=== PATIENT | male | born 1930 | race Hispanic/Latino ===

== ENCOUNTER 2018-05-17 11:12 | Inpatient (IN) | payer MEDICARE ==
--- NOTE | 2018-05-17 12:18 | ED PDOC ---
Upper Extremity Pain/Injury History Per: Family History/Exam Limitations: no limitations Onset/Duration Of Symptoms: Days Severity: None Pain Scale Rating Of: 0 Additional Complaint(s): 88 year old male with PMHx of A.Fib, HTN, hypercholestrolemia, DM, BPH and arthritis presents to the ED complaining of right finger injury. Patient is seen with her at bedside. Patient and his reports that the nail on the right middle finger spontaneously fell off. Reports that he has been noticing bleeding from the area but denies of any purulent drainage. Reports that he has been putting Mercurochrome on the finger and dressing it with a bandage. Reports that he recently noticed little swelling on the finger and decided to come to the ED. Denies of having any pain to the area. Patient denies of any recent F/N/V/C/SOB/CP/headache/diarrhea/constipation. Patient denies of any prior treatment. Denies of any other complains at this time. PMHx: A.Fib, HTN, hypercholestrolemia, DM and arthritis, BPH PSHx: Denies Allergies: N.K.D.A FHx: non-contributory SHx: Denies smoking, EtOH or illicit drug usage PMH: Dr. Hansen <Tristan Mcwilliams - Last Filed: 05/17/18 14:46> <Gerardo Reyes III - Last Filed: 05/17/18 15:59> Time Seen by Provider: 05/17/18 11:39 Chief Complaint (Nursing): Finger,Hand,&Wrist Past Medical History - Medical History PMH: Arthritis, Atrial Fibrillation, Benign Prostatic Hyperplasia, HTN, Hypercholesterolemia - Family History Family History: States: Unknown Family Hx <Tristan Mcwilliams - Last Filed: 05/17/18 14:46> <Gerardo Reyes III - Last Filed: 05/17/18 15:59> - Home Medications Home Medications: Ambulatory Orders Medication Instructions Recorded Aspirin [Ecotrin] 81 mg PO DAILY 09/21/16 Cholecalciferol (Vitamin D3) 2,000 unit PO DAILY 09/21/16 [Vitamin D3] Finasteride [Proscar] 5 mg PO DAILY 09/21/16 GlipiZIDE [Glucotrol] 2.5 mg PO BID 09/21/16 Lisinopril/Hydrochlorothiazide 1 tab PO BID 09/21/16 [Lisinopril-Hctz 20-12.5 mg Tab] MetFORMIN [glucOPHAGE] 1,000 mg PO BID 09/21/16 Metoprolol Tartrate [Lopressor] 25 mg PO Q12 09/21/16 Niacin [Niaspan] 750 mg PO HS 09/21/16 Simvastatin [Zocor] 10 mg PO HS 09/21/16 Tamsulosin [Flomax] 0.4 mg PO HS 09/21/16 Warfarin Sodium [Jantoven] 5 mg PO DAILY 09/21/16 Warfarin Sodium [Jantoven] 6 mg PO MWF 09/21/16 amLODIPine [Norvasc] 5 mg PO DAILY 09/21/16 ALPRAZolam [Xanax] 0.25 mg PO DAILY PRN 05/17/18 Multivitamin/Iron/Folic Acid 1 tab PO DAILY 05/17/18 [Centrum Complete Multivit Tab] Sertraline [Zoloft] 25 mg PO HS 05/17/18 traZODone [Desyrel] 50 mg PO HS 05/17/18 - Allergies Allergies/Adverse Reactions: Allergies Allergy/AdvReac Type Severity Reaction Status Date / Time No Known Allergies Allergy Verified 09/21/16 18:16 Review of Systems Constitutional: Negative for: Fever, Chills, Sweats, Weakness, Malaise Eyes: Negative for: Pain ENT: Negative for: Ear Pain Cardiovascular: Negative for: Chest Pain, Palpitations Respiratory: Negative for: Cough, Shortness of Breath, Wheezing Gastrointestinal: Negative for: Nausea, Vomiting, Abdominal Pain, Diarrhea, Constipation Musculoskeletal: Negative for: Hand Pain Skin: Negative for: Rash Neurological: Negative for: Weakness, Numbness Psych: Negative for: Anxiety <Tristan Mcwilliams - Last Filed: 05/17/18 14:46> Physical Exam - Physical Exam Appears: Positive for: Well, No Acute Distress Head Exam: Positive for: ATRAUMATIC Skin: Positive for: Normal Color. Negative for: Warm, Rash Eye Exam: Positive for: Normal appearance ENT: Positive for: Normal ENT Inspection Neck: Positive for: Normal Cardiovascular/Chest: Positive for: Regular Rate, Rhythm Respiratory: Positive for: Normal Breath Sounds Gastrointestinal/Abdominal: Positive for: Normal Exam, Bowel Sounds Extremity: Positive for: Normal ROM, Capillary Refill, Swelling Lymphatic: Positive for: Deferred <Mcwilliams,Tristan - Last Filed: 05/17/18 14:46> - Physical Exam Extremity: Positive for: Other (R middle digit loss fingernail, macerated base w erythema and mild edema to distal digit) <Gerardo Reyes III - Last Filed: 05/17/18 15:59> - Laboratory Results Result Diagrams: 05/17/18 14:00 05/17/18 14:00 <Gerardo Reyes III - Last Filed: 05/17/18 15:59> Medical Decision Making Medical Decision Making: attending note patient seen/examined w resident, agree w findings 88yo DM hx osteomyelitis foot now w spontaneous loss of R middle fingernail, denies trauma, nail bed w maceration and evidence infection, XRay reveals possibly osteomyelitis. Dr Hansen PMD contacted, requests Dr Ann Marie DO, who was also consulted and recommended vanco/unasyn and may need hand surgery eval. <Gerardo Reyes III - Last Filed: 05/17/18 15:59> Disposition - Patient ED Disposition Is Patient to be Admitted: Yes <Tristan Mcwilliams - Last Filed: 05/17/18 14:46> Counseled Patient/Family Regarding: Studies Performed, Diagnosis, Need For Followup - Disposition Disposition Time: 13:30 - Pt Status Changed To: Hospital Disposition Of: Inpatient - Admit Certification Admit to Inpatient:: After my assessment, the patient will require hospitalization for at least two midnights. This is because of the severity of symptoms shown, intensity of services needed, and/or the medical risk in this patient being treated as an outpatient. <Gerardo Reyes III - Last Filed: 05/17/18 15:59> - Clinical Impression Clinical Impression: Osteomyelitis of finger - Disposition Condition: FAIR
--- NOTE | 2018-05-17 14:03 | RAD ---
PROCEDURE: Right Hand Radiographs. HISTORY: 3rd digit injury COMPARISON: None. FINDINGS: BONES: Comminuted fracture of the tuft of the 3rd distal phalanx. There is absent cortex on the distal aspect of the 3rd distal phalanx which is most likely due to displaced fracture fragment. Cannot exclude superimposed osteomyelitis but there is absent periosteal reaction to support this diagnosis. Correlate clinically. No other fracture identified. 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 SOFT TISSUES: Soft tissue swelling about the distal aspect of the 3rd digit OTHER FINDINGS: None. IMPRESSION: Comminuted displaced fracture distal aspect 3rd distal phalanx. Osteoarthritis.
[2018-05-17 14:55] LABS: BASO % 0.1 % (0.0-2.0); EOS # 0.1 K/uL (0.0-0.7); EOS % 0.8 % (0.0-4.0); HEMOGLOBIN 12.8 g/dL (12.0-18.0); LYMPH # 1.3 K/uL (1.0-4.3); LYMPH % 12.2 % (20.0-40.0); MEAN CORPUSCULAR HEMOGLOBIN 30.9 pg (27.0-31.0); MEAN CORPUSCULAR HGB CONC 34.3 g/dL (33.0-37.0); MEAN PLATELET VOLUME 7.9 fl (7.2-11.7); MONO # 0.9 K/uL (0.0-0.8); MONO % 8.3 % (0.0-10.0); NEUT # 8.4 K/uL (1.8-7.0); NEUT % 78.6 % (50.0-75.0); NRBC % 0.1 % (0.0-0.0); RBC 4.16 Mil/uL (4.40-5.90); RED CELL DISTRIBUTION WIDTH 14.1 % (11.5-14.5); WHITE BLOOD COUNT 10.7 K/uL (4.8-10.8)
[2018-05-17 15:01] LABS: ALB/GLOB RATIO 1.5 (1.0-2.1); ALBUMIN 4.2 g/dL (3.5-5.0); CALCIUM 9.3 mg/dL (8.4-10.2)
[2018-05-17 15:27] LABS: INR 2.3 (0.9-1.2); PARTIAL THROMBOPLASTIN TIME 37.7 Seconds (25.6-37.1); PROTHROMBIN TIME 25.4 Seconds (9.8-13.1)
[2018-05-17] MEDS ORDERED: Vancomycin 1 g Inj ONE (15:33)
--- NOTE | 2018-05-17 16:57 | CP.PCM.PN ---
Subjective - Date & Time of Evaluation Date of Evaluation: 05/17/18 Time of Evaluation: 16:50 - Subjective Subjective: I D NOTE DISCUSSED CASE c ER MD INITIALLY GIVEN VANCOMYCIN 1 GM AND UNASYN 1.5GM IVPB Q6H PRIOR TO RESULTS OF RENAL FUNCTION CREATININE IS 1.5 HAVE STARTED CLINDAMYCIN 600MG IVPB Q8H UNASYN 1.5 GM IVPB Q12H(ADJUSTED RENAL DOSE AWAIT CULTURES Objective - Medications Medications: Current Medications Clindamycin Phosphate 600 mg/ (Sodium Chloride) 54 mls @ 54 mls/hr IVPB Q8 [facility] PRN Reason: Protocol Ampicillin Sodium/Sulbactam (Sodium 1.5 gm/ Sodium Chloride) 100 mls @ 100 mls/ hr IVPB Q12H [facility] PRN Reason: Protocol - Labs Labs: 05/17/18 14:00 05/17/18 14:00 PT 25.4 Seconds (9.8-13.1) H 05/17/18 14:00 INR 2.3 (0.9-1.2) H 05/17/18 14:00 APTT 37.7 Seconds (25.6-37.1) H 05/17/18 14:00
[2018-05-17] MEDS ORDERED: Clindamycin 600mg/50ml NS 600 MG/50 ML BAG IVPB SCH (17:00)
[2018-05-17] MEDS: Clindamycin 600mg/50ml NS 600 MG/50 ML BAG IVPB SCH (19:52)
[2018-05-17] MEDS: Pravastatin Sodium 20 MG TAB PO SCH (21:06)
[2018-05-18] MEDS: Clindamycin 600mg/50ml NS 600 MG/50 ML BAG IVPB SCH ×3 (00:25→16:02)
[2018-05-18 06:42] LABS: PROTHROMBIN TIME 22.3 Seconds (9.8-13.1)
--- NOTE | 2018-05-18 06:50 | CP.PCM.HP ---
<Celia Pineda - Last Filed: 05/18/18 12:15> History of Present Illness - History of Present Illness History of Present Illness: HPI: 88 YO male with PMHx of A.Fib, HTN, hypercholestrolemia, DM, BPH and arthritis came to [facility] for pain and discharge from R middle finger. Pt seen and examined this AM. Pt is hard of hearing. Pt states that he came to the ED for bleeding and pain on R middle finger. Pt states that this started about two weeks ago when his fingernail spontaneously fell off. He has had sero- sangunious fluid coming out of the site but no pus, or any other fluids. Pt does not recall any trauma. Pt has been dressing the site with band-aids and noticed that it has been looking worse in the past few days. Denies chest pain, dyspnea, n/v/d/c, fever and chills. PMD: Dr. Hansen PMHx: A.Fib, HTN, hypercholestrolemia, DM and arthritis, BPH SurgHx: Denies SHx: Denies smoking, ETOH or illicit drug usage Allergies: NKDA Present on Admission - Present on Admission Any Indicators Present on Admission: No Review of Systems - Constitutional Constitutional: absent: Chills, Fever - Cardiovascular Cardiovascular: absent: Chest Pain, Dyspnea, Palpitations - Respiratory Respiratory: absent: Cough, Dyspnea - Gastrointestinal Gastrointestinal: absent: Abdominal Pain - Genitourinary Genitourinary: absent: Dysuria - Musculoskeletal Additional comments: mild pain in R middle finger - Neurological Neurological: absent: Numbness Past Patient History - Past Medical History & Family History Past Medical History?: Yes - Past Social History Smoking Status: Never Smoked - CARDIAC Hx Cardiac Disorders: Yes Hx Atrial Fibrillation: Yes Hx Hypercholesterolemia: Yes Hx Hypertension: Yes - PULMONARY Hx Respiratory Disorders: No - NEUROLOGICAL Hx Neurological Disorder: No - HEENT Hx HEENT Problems: Yes Hx Cataracts: Yes (surgery) - RENAL Hx Chronic Kidney Disease: No - ENDOCRINE/METABOLIC Hx Endocrine Disorders: Yes Hx Diabetes Mellitus Type 2: Yes - HEMATOLOGICAL/ONCOLOGICAL Hx Blood Disorders: No - INTEGUMENTARY Hx Dermatological Problems: No - MUSCULOSKELETAL/RHEUMATOLOGICAL Hx Musculoskeletal Disorders: Yes Hx Arthritis: Yes Hx Falls: No Hx Osteomyelitis: Yes (fiffth digit of thhe right toe, surgery) - GASTROINTESTINAL Hx Gastrointestinal Disorders: No - GENITOURINARY/GYNECOLOGICAL Hx Genitourinary Disorders: Yes Hx Prostate Problems: Yes (BPH) - PSYCHIATRIC Hx Psychophysiologic Disorder: No Hx Substance Use: No - SURGICAL HISTORY Hx Surgeries: Yes Hx Cataract Extraction: Yes (BILATERAL) Hx Musculoskeletal Surgery: Yes (RIGHT DISTAL TOE SURGERY) - ANESTHESIA Hx Anesthesia: Yes Hx Anesthesia Reactions: No Hx Malignant Hyperthermia: No Has any member of the family had a problem w/ anesthesia?: No Meds Allergies/Adverse Reactions: Allergies Allergy/AdvReac Type Severity Reaction Status Date / Time No Known Allergies Allergy Verified 09/21/16 18:16 Physical Exam - Constitutional Appears: No Acute Distress, Other (hearing aid in R ear ) - Head Exam Head Exam: ATRAUMATIC - Eye Exam Eye Exam: EOMI - ENT Exam ENT Exam: Mucous Membranes Moist - Respiratory Exam Respiratory Exam: Clear to Auscultation Bilateral. absent: Wheezes - Cardiovascular Exam Cardiovascular Exam: Irregular Rhythm, +S1, +S2 - GI/Abdominal Exam GI & Abdominal Exam: Normal Bowel Sounds, Soft. absent: Tenderness - Extremities Exam Extremities exam: Positive for: normal inspection. Negative for: calf tenderness Additional comments: R middle finger in dressing, sero-sangunious discharge noted in gauze. No erythema or edema of the hang or proximal finger full ROM of finger and hang - Neurological Exam Neurological exam: Alert, Oriented x3 Results - Vital Signs Recent Vital Signs: Last Vital Signs Temp 98.2 F 05/18/18 01:00 Pulse 68 05/18/18 01:00 Resp 19 05/18/18 01:00 BP 136/73 05/18/18 01:00 Pulse Ox 97 05/18/18 01:00 - Labs Result Diagrams: 05/17/18 14:00 05/17/18 14:00 Labs: Laboratory Results - last 24 hr 05/17/18 05/17/18 05/17/18 14:00 14:00 14:00 WBC 10.7 D RBC 4.16 L Hgb 12.8 Hct 37.4 MCV 90.0 MCH 30.9 MCHC 34.3 RDW 14.1 Plt Count 160 MPV 7.9 Neut % (Auto) 78.6 H Lymph % (Auto) 12.2 L Talbot % (Auto) 8.3 Eos % (Auto) 0.8 Baso % (Auto) 0.1 Neut # (Auto) 8.4 H Lymph # (Auto) 1.3 Talbot # (Auto) 0.9 H Eos # (Auto) 0.1 Baso # (Auto) 0.0 ESR 44 H PT 25.4 H INR 2.3 H APTT 37.7 H Sodium 141 Potassium 4.1 Chloride 102 Carbon Dioxide 24 Anion Gap 19 BUN 24 H Creatinine 1.5 Est GFR ( Amer) 54 Est GFR (Non-Af Amer) 44 POC Glucose (mg/dL) Random Glucose 194 H Calcium 9.3 Total Bilirubin 1.1 AST 43 ALT 31 Alkaline Phosphatase 56 Total Protein 7.1 Albumin 4.2 Globulin 2.9 Albumin/Globulin Ratio 1.5 05/17/18 05/17/18 05/18/18 18:13 21:41 05:55 WBC RBC Hgb Hct MCV MCH MCHC RDW Plt Count MPV Neut % (Auto) Lymph % (Auto) Talbot % (Auto) Eos % (Auto) Baso % (Auto) Neut # (Auto) Lymph # (Auto) Talbot # (Auto) Eos # (Auto) Baso # (Auto) ESR PT INR APTT Sodium Potassium Chloride Carbon Dioxide Anion Gap BUN Creatinine Est GFR ( Amer) Est GFR (Non-Af Amer) POC Glucose (mg/dL) 138 H 103 107 Random Glucose Calcium Total Bilirubin AST ALT Alkaline Phosphatase Total Protein Albumin Globulin Albumin/Globulin Ratio 05/18/18 06:05 WBC RBC Hgb Hct MCV MCH MCHC RDW Plt Count MPV Neut % (Auto) Lymph % (Auto) Talbot % (Auto) Eos % (Auto) Baso % (Auto) Neut # (Auto) Lymph # (Auto) Talbot # (Auto) Eos # (Auto) Baso # (Auto) ESR PT 22.3 H INR 2.0 H APTT Sodium Potassium Chloride Carbon Dioxide Anion Gap BUN Creatinine Est GFR ( Amer) Est GFR (Non-Af Amer) POC Glucose (mg/dL) Random Glucose Calcium Total Bilirubin AST ALT Alkaline Phosphatase Total Protein Albumin Globulin Albumin/Globulin Ratio Assessment & Plan (1) A-fib Status: Chronic (2) Hypercholesteremia Status: Chronic (3) Osteomyelitis of finger Status: Acute (4) Diabetes mellitus Status: Chronic (5) BPH (benign prostatic hyperplasia) Status: Chronic - Assessment and Plan (Free Text) Assessment: Assessment/Plan: 88 YO male with PMHx of A.Fib, HTN, hypercholestrolemia, DM, BPH and arthritis is admitted for osteomylitis of R middle finger. -blood work reviewed, VS stable -on warfarin, INR theraputic -ID on consult; cont abx unasyn and clinda -Hand surg on consult -XR of hand; comminuted displaced fx of the 3rd distal phalanx; purulent discharge, likely represent osteomylitis of the 3rd distal phalanx. -MRI hand pending -plan as ordered Pt seen and examined with Dr. Hansen <Xavi Hansen - Last Filed: 05/21/18 06:53> Results - Vital Signs Recent Vital Signs: Last Vital Signs Temp 98.1 F 05/21/18 00:35 Pulse 74 05/21/18 00:35 Resp 19 05/21/18 00:35 BP 124/63 05/21/18 00:35 Pulse Ox 99 05/21/18 00:35 - Labs Result Diagrams: 05/19/18 06:00 05/19/18 06:00 Labs: Laboratory Results - last 24 hr 05/20/18 05/21/18 05:30 05:00 PT 34.5 H D 44.0 H* D INR 3.0 H 3.9 H Assessment & Plan - Assessment and Plan (Free Text) Plan: I was present during evaluation and discussed with Dr Edwin whitaker plans of care and tx. will continue same antibiotics and maintain coumadin. Xavi Hansen M.D.
[2018-05-18] MEDS: Multivitamin With Minerals Tab PO SCH (09:02)
[2018-05-18] MEDS: Cholecalciferol 1,000 INTLU TAB PO SCH (09:02)
[2018-05-18] MEDS: Bacitracin OINT 15GM TOP SCH (16:03)
--- NOTE | 2018-05-18 17:14 | CP.PCM.PN ---
Subjective - Date & Time of Evaluation Date of Evaluation: 05/18/18 Time of Evaluation: 17:10 - Subjective Subjective: I D NOTE AWAIT MRI AND CULTURES APPEARS TO BE OSTEOMYELITIS CONTINUE CLIN DAMYCIN/UNASYN Objective - Vital Signs/Intake and Output Vital Signs (last 24 hours): Temp Pulse Resp BP Pulse Ox 97.6 F 85 20 128/62 98 05/18/18 15:59 05/18/18 15:59 05/18/18 15:59 05/18/18 15:59 05/18/18 15:59 - Medications Medications: Current Medications Alprazolam (Xanax) 0.25 mg PO DAILY PRN PRN Reason: Anxiety Stop: 05/24/18 18:13 Amlodipine Besylate (Norvasc) 5 mg PO DAILY [facility] Last Admin: 05/18/18 09:02 Dose: 5 mg Aspirin (Ecotrin) 81 mg PO HS [facility] Last Admin: 05/17/18 21:05 Dose: 81 mg Bacitracin (Bacitracin Oint) 1 applic TOP TID [facility] Last Admin: 05/18/18 16:03 Dose: 1 applic Cholecalciferol (Vitamin D) 2,000 intlu PO DAILY [facility] Last Admin: 05/18/18 09:02 Dose: 2,000 intlu Finasteride (Proscar) 5 mg PO DAILY [facility] Last Admin: 05/18/18 09:02 Dose: 5 mg Glipizide (Glucotrol) 2.5 mg PO Q12 [facility] Last Admin: 05/18/18 09:03 Dose: 2.5 mg Home Med (Niacin [Niaspan]) 750 mg PO [facility] Hydrochlorothiazide (Microzide) 12.5 mg PO Q12 [facility] Last Admin: 05/18/18 09:02 Dose: 12.5 mg Ampicillin Sodium/Sulbactam (Sodium 1.5 gm/ Sodium Chloride) 100 mls @ 100 mls/ hr IVPB Q12H [facility] PRN Reason: Protocol Last Admin: 05/18/18 04:21 Dose: 100 mls/hr Clindamycin Phosphate (Cleocin In Normal Saline) 600 mg in 50 mls @ 50 mls/hr IVPB Q8 [facility] PRN Reason: Protocol Last Admin: 05/18/18 16:02 Dose: 50 mls/hr Lisinopril (Zestril) 20 mg PO Q12 [facility] Last Admin: 05/18/18 09:03 Dose: 20 mg Metformin HCl (Glucophage) 1,000 mg PO Q12 [facility] Last Admin: 05/18/18 09:01 Dose: 1,000 mg Metoprolol Tartrate (Lopressor) 25 mg PO Q12 [facility] Last Admin: 05/18/18 09:01 Dose: 25 mg Multivitamins/Minerals (Therapeutic-M Tab) 1 tab PO DAILY [facility] Last Admin: 05/18/18 09:02 Dose: 1 tab Pravastatin Sodium (Pravachol) 20 mg PO [facility] Last Admin: 05/17/18 21:06 Dose: 20 mg Sertraline HCl (Zoloft) 25 mg PO [facility] Last Admin: 05/17/18 21:05 Dose: 25 mg Tamsulosin HCl (Flomax) 0.4 mg PO [facility] Last Admin: 05/17/18 21:07 Dose: 0.4 mg Trazodone HCl (Desyrel) 50 mg PO [facility] Last Admin: 05/17/18 21:07 Dose: 50 mg - Labs Labs: 05/17/18 14:00 05/17/18 14:00 PT 22.3 Seconds (9.8-13.1) H 05/18/18 06:05 INR 2.0 (0.9-1.2) H 05/18/18 06:05 APTT 37.7 Seconds (25.6-37.1) H 05/17/18 14:00
[2018-05-18] MEDS: NIACIN 750 MG PO SCH (21:33)
[2018-05-18] MEDS: Pravastatin Sodium 20 MG TAB PO SCH (21:34)
[2018-05-19] MEDS: Clindamycin 600mg/50ml NS 600 MG/50 ML BAG IVPB SCH ×3 (00:57→17:52)
[2018-05-19 07:37] LABS: HEMOGLOBIN 12.8 g/dL (12.0-18.0); MEAN CELL VOLUME 88.7 fl (80.0-94.0); MEAN CORPUSCULAR HEMOGLOBIN 30.9 pg (27.0-31.0); MEAN CORPUSCULAR HGB CONC 34.8 g/dL (33.0-37.0); RBC 4.13 Mil/uL (4.40-5.90); WHITE BLOOD COUNT 7.6 K/uL (4.8-10.8)
[2018-05-19 07:43] LABS: ALB/GLOB RATIO 1.3 (1.0-2.1); CALCIUM 9.4 mg/dL (8.4-10.2)
[2018-05-19 07:55] LABS: INR 2.5 (0.9-1.2)
[2018-05-19] MEDS: Cholecalciferol 1,000 INTLU TAB PO SCH (08:27)
[2018-05-19] MEDS: Multivitamin With Minerals Tab PO SCH (08:29)
[2018-05-19] MEDS: Bacitracin OINT 15GM TOP SCH ×3 (08:31→17:56)
--- NOTE | 2018-05-19 14:01 | CP.PCM.PN ---
Subjective - Date & Time of Evaluation Date of Evaluation: 05/19/18 Time of Evaluation: 14:00 - Subjective Subjective: I D NOTE MRI DONE ,REPORT AWAITED Objective - Vital Signs/Intake and Output Vital Signs (last 24 hours): Temp Pulse Resp BP Pulse Ox 98.2 F 95 H 19 136/53 L 99 05/19/18 08:22 05/19/18 08:29 05/19/18 08:22 05/19/18 08:29 05/19/18 08:22 - Medications Medications: Current Medications Alprazolam (Xanax) 0.25 mg PO DAILY PRN PRN Reason: Anxiety Stop: 05/24/18 18:13 Amlodipine Besylate (Norvasc) 5 mg PO DAILY [facility] Last Admin: 05/19/18 08:28 Dose: 5 mg Aspirin (Ecotrin) 81 mg PO [facility] Last Admin: 05/18/18 21:33 Dose: 81 mg Bacitracin (Bacitracin Oint) 1 applic TOP TID [facility] Last Admin: 05/19/18 08:31 Dose: 1 applic Cholecalciferol (Vitamin D) 2,000 intlu PO DAILY [facility] Last Admin: 05/19/18 08:27 Dose: 2,000 intlu Finasteride (Proscar) 5 mg PO DAILY [facility] Last Admin: 05/19/18 08:27 Dose: 5 mg Glipizide (Glucotrol) 2.5 mg PO Q12 [facility] Last Admin: 05/19/18 08:26 Dose: 2.5 mg Home Med (Niacin [Niaspan]) 750 mg PO [facility] Last Admin: 05/18/18 21:33 Dose: 750 mg Hydrochlorothiazide (Microzide) 12.5 mg PO Q12 [facility] Last Admin: 05/19/18 08:29 Dose: 12.5 mg Ampicillin Sodium/Sulbactam (Sodium 1.5 gm/ Sodium Chloride) 100 mls @ 100 mls/ hr IVPB Q12H [facility] PRN Reason: Protocol Last Admin: 05/19/18 04:10 Dose: 100 mls/hr Clindamycin Phosphate (Cleocin In Normal Saline) 600 mg in 50 mls @ 50 mls/hr IVPB Q8 [facility] PRN Reason: Protocol Last Admin: 05/19/18 08:31 Dose: 50 mls/hr Lisinopril (Zestril) 20 mg PO Q12 [facility] Last Admin: 05/19/18 08:29 Dose: 20 mg Metformin HCl (Glucophage) 1,000 mg PO Q12 [facility] Last Admin: 05/19/18 08:29 Dose: 1,000 mg Metoprolol Tartrate (Lopressor) 25 mg PO Q12 [facility] Last Admin: 05/19/18 08:29 Dose: 25 mg Multivitamins/Minerals (Therapeutic-M Tab) 1 tab PO DAILY [facility] Last Admin: 05/19/18 08:29 Dose: 1 tab Pravastatin Sodium (Pravachol) 20 mg PO HS [facility] Last Admin: 05/18/18 21:34 Dose: 20 mg Sertraline HCl (Zoloft) 25 mg PO HS [facility] Last Admin: 05/18/18 21:35 Dose: 25 mg Tamsulosin HCl (Flomax) 0.4 mg PO HS [facility] Last Admin: 05/18/18 21:33 Dose: 0.4 mg Trazodone HCl (Desyrel) 50 mg PO [facility] Last Admin: 05/18/18 21:33 Dose: 50 mg - Labs Labs: 05/19/18 06:00 05/19/18 06:00 PT 28.0 Seconds (9.8-13.1) H D 05/19/18 06:00 INR 2.5 (0.9-1.2) H D 05/19/18 06:00 APTT 37.7 Seconds (25.6-37.1) H 05/17/18 14:00
[2018-05-19] MEDS: Pravastatin Sodium 20 MG TAB PO SCH (21:41)
[2018-05-19] MEDS: NIACIN 750 MG PO SCH (21:42)
[2018-05-20 07:01] LABS: PROTHROMBIN TIME 34.5 Seconds (9.8-13.1)
[2018-05-20] MEDS: Multivitamin With Minerals Tab PO SCH (08:03)
[2018-05-20] MEDS: Cholecalciferol 1,000 INTLU TAB PO SCH (08:08)
[2018-05-20] MEDS: Bacitracin OINT 15GM TOP SCH ×3 (08:10→16:01)
[2018-05-20] MEDS: Clindamycin 600mg/50ml NS 600 MG/50 ML BAG IVPB SCH (16:00)
[2018-05-20] MEDS: Pravastatin Sodium 20 MG TAB PO SCH (21:02)
[2018-05-20] MEDS: NIACIN 750 MG PO SCH (22:30)
[2018-05-21] MEDS: Clindamycin 600mg/50ml NS 600 MG/50 ML BAG IVPB SCH ×2 (00:36→08:53)
[2018-05-21 06:40] LABS: INR 3.9 (0.9-1.2)
--- NOTE | 2018-05-21 06:57 | CP.PCM.PN ---
Subjective - Date & Time of Evaluation Date of Evaluation: 05/19/18 Time of Evaluation: 10:00 - Subjective Subjective: Patient remains stable Has no chest pain or SOB INR is therapeutic Currently on Clinda and Unasyn Has no fever CBC is normal. Objective - Vital Signs/Intake and Output Vital Signs (last 24 hours): Temp Pulse Resp BP Pulse Ox 98.1 F 74 19 124/63 99 05/21/18 00:35 05/21/18 00:35 05/21/18 00:35 05/21/18 00:35 05/21/18 00:35 - Medications Medications: Current Medications Alprazolam (Xanax) 0.25 mg PO DAILY PRN PRN Reason: Anxiety Stop: 05/24/18 18:13 Amlodipine Besylate (Norvasc) 5 mg PO DAILY [facility] Last Admin: 05/20/18 08:07 Dose: 5 mg Aspirin (Ecotrin) 81 mg PO [facility] Last Admin: 05/20/18 21:01 Dose: 81 mg Bacitracin (Bacitracin Oint) 1 applic TOP TID [facility] Last Admin: 05/20/18 16:01 Dose: 1 applic Cholecalciferol (Vitamin D) 2,000 intlu PO DAILY [facility] Last Admin: 05/20/18 08:08 Dose: 2,000 intlu Finasteride (Proscar) 5 mg PO DAILY [facility] Last Admin: 05/20/18 08:04 Dose: 5 mg Glipizide (Glucotrol) 2.5 mg PO Q12 [facility] Last Admin: 05/20/18 21:01 Dose: 2.5 mg Home Med (Niacin [Niaspan]) 750 mg PO [facility] Last Admin: 05/20/18 22:30 Dose: 750 mg Hydrochlorothiazide (Microzide) 12.5 mg PO Q12 [facility] Last Admin: 05/20/18 21:01 Dose: 12.5 mg Ampicillin Sodium/Sulbactam (Sodium 1.5 gm/ Sodium Chloride) 100 mls @ 100 mls/ hr IVPB Q12H [facility] PRN Reason: Protocol Last Admin: 05/21/18 04:42 Dose: 100 mls/hr Clindamycin Phosphate (Cleocin In Normal Saline) 600 mg in 50 mls @ 50 mls/hr IVPB Q8 [facility] PRN Reason: Protocol Last Admin: 05/21/18 00:36 Dose: 50 mls/hr Lisinopril (Zestril) 20 mg PO Q12 [facility] Last Admin: 05/20/18 21:01 Dose: 20 mg Metformin HCl (Glucophage) 1,000 mg PO Q12 [facility] Last Admin: 05/20/18 21:02 Dose: 1,000 mg Metoprolol Tartrate (Lopressor) 25 mg PO Q12 [facility] Last Admin: 05/20/18 21:01 Dose: 25 mg Multivitamins/Minerals (Therapeutic-M Tab) 1 tab PO DAILY [facility] Last Admin: 05/20/18 08:03 Dose: 1 tab Pravastatin Sodium (Pravachol) 20 mg PO [facility] Last Admin: 05/20/18 21:02 Dose: 20 mg Sertraline HCl (Zoloft) 25 mg PO [facility] Last Admin: 05/20/18 21:02 Dose: 25 mg Tamsulosin HCl (Flomax) 0.4 mg PO [facility] Last Admin: 05/20/18 21:03 Dose: 0.4 mg Trazodone HCl (Desyrel) 50 mg PO [facility] Last Admin: 05/20/18 21:03 Dose: 50 mg - Labs Labs: 05/19/18 06:00 05/19/18 06:00 PT 44.0 Seconds (9.8-13.1) H* D 05/21/18 05:00 INR 3.9 (0.9-1.2) H 05/21/18 05:00 APTT 37.7 Seconds (25.6-37.1) H 05/17/18 14:00 - Head Exam Head Exam: NORMAL INSPECTION - Eye Exam Eye Exam: Normal appearance - ENT Exam ENT Exam: Mucous Membranes Moist - Respiratory Exam Respiratory Exam: Clear to Ausculation Bilateral - Cardiovascular Exam Cardiovascular Exam: REGULAR RHYTHM - GI/Abdominal Exam GI & Abdominal Exam: Normal Bowel Sounds - Neurological Exam Neurological Exam: CN II-XII Intact, Oriented x3 Assessment and Plan (1) Osteomyelitis of finger Status: Acute (2) A-fib Status: Chronic (3) BPH (benign prostatic hyperplasia) Status: Chronic (4) Diabetes mellitus Status: Chronic - Assessment and Plan (Free Text) Plan: Con tmeds Cont tx Cont coumadin cont clinda and unasyn
--- NOTE | 2018-05-21 07:00 | CP.PCM.PN ---
Subjective - Date & Time of Evaluation Date of Evaluation: 05/20/18 Time of Evaluation: 11:00 - Subjective Subjective: Patient remains well Has minimal pain on the finger. Has no fever INR is therapeutic. Objective - Vital Signs/Intake and Output Vital Signs (last 24 hours): Temp Pulse Resp BP Pulse Ox 98.1 F 74 19 124/63 99 05/21/18 00:35 05/21/18 00:35 05/21/18 00:35 05/21/18 00:35 05/21/18 00:35 - Medications Medications: Current Medications Alprazolam (Xanax) 0.25 mg PO DAILY PRN PRN Reason: Anxiety Stop: 05/24/18 18:13 Amlodipine Besylate (Norvasc) 5 mg PO DAILY [facility] Last Admin: 05/20/18 08:07 Dose: 5 mg Aspirin (Ecotrin) 81 mg PO [facility] Last Admin: 05/20/18 21:01 Dose: 81 mg Bacitracin (Bacitracin Oint) 1 applic TOP TID [facility] Last Admin: 05/20/18 16:01 Dose: 1 applic Cholecalciferol (Vitamin D) 2,000 intlu PO DAILY [facility] Last Admin: 05/20/18 08:08 Dose: 2,000 intlu Finasteride (Proscar) 5 mg PO DAILY [facility] Last Admin: 05/20/18 08:04 Dose: 5 mg Glipizide (Glucotrol) 2.5 mg PO Q12 [facility] Last Admin: 05/20/18 21:01 Dose: 2.5 mg Home Med (Niacin [Niaspan]) 750 mg PO [facility] Last Admin: 05/20/18 22:30 Dose: 750 mg Hydrochlorothiazide (Microzide) 12.5 mg PO Q12 [facility] Last Admin: 05/20/18 21:01 Dose: 12.5 mg Ampicillin Sodium/Sulbactam (Sodium 1.5 gm/ Sodium Chloride) 100 mls @ 100 mls/ hr IVPB Q12H [facility] PRN Reason: Protocol Last Admin: 05/21/18 04:42 Dose: 100 mls/hr Clindamycin Phosphate (Cleocin In Normal Saline) 600 mg in 50 mls @ 50 mls/hr IVPB Q8 [facility] PRN Reason: Protocol Last Admin: 05/21/18 00:36 Dose: 50 mls/hr Lisinopril (Zestril) 20 mg PO Q12 [facility] Last Admin: 05/20/18 21:01 Dose: 20 mg Metformin HCl (Glucophage) 1,000 mg PO Q12 [facility] Last Admin: 05/20/18 21:02 Dose: 1,000 mg Metoprolol Tartrate (Lopressor) 25 mg PO Q12 [facility] Last Admin: 05/20/18 21:01 Dose: 25 mg Multivitamins/Minerals (Therapeutic-M Tab) 1 tab PO DAILY [facility] Last Admin: 05/20/18 08:03 Dose: 1 tab Pravastatin Sodium (Pravachol) 20 mg PO [facility] Last Admin: 05/20/18 21:02 Dose: 20 mg Sertraline HCl (Zoloft) 25 mg PO [facility] Last Admin: 05/20/18 21:02 Dose: 25 mg Tamsulosin HCl (Flomax) 0.4 mg PO [facility] Last Admin: 05/20/18 21:03 Dose: 0.4 mg Trazodone HCl (Desyrel) 50 mg PO [facility] Last Admin: 05/20/18 21:03 Dose: 50 mg Warfarin Sodium (Coumadin) 3 mg PO QD5 [facility] PRN Reason: Protocol Stop: 05/21/18 17:01 - Labs Labs: 05/19/18 06:00 05/19/18 06:00 PT 44.0 Seconds (9.8-13.1) H* D 05/21/18 05:00 INR 3.9 (0.9-1.2) H 05/21/18 05:00 APTT 37.7 Seconds (25.6-37.1) H 05/17/18 14:00 - Head Exam Head Exam: NORMAL INSPECTION - Eye Exam Eye Exam: Normal appearance - Respiratory Exam Respiratory Exam: Clear to Ausculation Bilateral - Cardiovascular Exam Cardiovascular Exam: Irregular Rhythm - GI/Abdominal Exam GI & Abdominal Exam: Soft, Normal Bowel Sounds - Neurological Exam Neurological Exam: Awake, Oriented x3 - Psychiatric Exam Psychiatric exam: Normal Mood Assessment and Plan (1) Osteomyelitis of finger Status: Acute (2) A-fib Status: Chronic (3) BPH (benign prostatic hyperplasia) Status: Chronic (4) Diabetes mellitus Status: Chronic - Assessment and Plan (Free Text) Assessment: Con tmeds Cont tx Cont PTY ain meds cont unasyn and clindamycin follow up MRI report
[2018-05-21] MEDS: Bacitracin OINT 15GM TOP SCH ×3 (08:53→16:09)
[2018-05-21] MEDS: Cholecalciferol 1,000 INTLU TAB PO SCH (09:01)
[2018-05-21] MEDS: Multivitamin With Minerals Tab PO SCH (09:01)
--- NOTE | 2018-05-21 12:14 | CP.PCM.PCO ---
Assessment/Plan - Assessment/Plan Assessment (Free Text): Spoke to Dr. Jesus, pt will require IV Vancomycin 1g daily for a minimum of 4 weeks with biweekly labs and vanco trough. Picc line ordered. Pt and at bedside state pt would prefer to come to hospital as outpatient to get daily infusion as pt has done this in the past. Rx given to CM. Pt for picc line insertion. Cleared for d/c home by Dr. Hansen. RN aware of plan
[2018-05-21] MEDS ORDERED: Lidocaine Hydrochloride 5 ML INJ ONE (12:21)
--- NOTE | 2018-05-21 12:40 | PCM.SURG1 ---
Surgeon's Initial Post Op Note - Surgeon's Notes Surgeon: Delroy Olmos MD Signal Maintainer Helper: NONE Type of Anesthesia: Local Pre-Operative Diagnosis: Infection Operative Findings: US showed a patent left basilic vein Post-Operative Diagnosis: Infection Operation Performed: Single lumen picc left basilic vein, 40 cm. Tip is in the SVC. Specimen/Specimens Removed: NOne Estimated Blood Loss: EBL {In ML}: 2 Blood Products Given: N/A Drains Used: No Drains Post-Op Condition: Fair Date of Surgery/Procedure: 05/21/18 Time of Surgery/Procedure: 12:35
--- NOTE | 2018-05-21 14:54 | CP.PCM.CON ---
History of Present Illness - History of Present Illness History of Present Illness: Orthopedic hand consult Patient is an 88 y/o RHD male with PMH of HTN, NIIDM, A fib and hypercholesterolemia admitted due to suspected osteomyelitis of the right hand third distal phalynx. Dr. Cardozo was consulted for orthopedic hand evaluation. The patient reports noticing a nontraumatic blister at his distal third finger 3 weeks ago. Approximately one week ago, he noticed the blister open, resulting in progressive swelling and loss of the nail. Currently his pain is mild, intermittent and dull in quality. The pain occurs with movement of the finger and is associated with swelling and an open wound at the nail bed. He notes that he has used topical mercurochrome and dry dressings daily which has helped. He currently denies CP/SOB/N/V/D/fever/dysuria/melena. Review of Systems - Review of Systems All systems: reviewed and no additional remarkable complaints except Review of Systems: as per HPI Past Patient History - Past Medical History & Family History Past Medical History?: Yes Past Family History: Reviewed and not pertinent - Past Social History Smoking Status: Never Smoked Alcohol: None Drugs: Denies - CARDIAC Hx Cardiac Disorders: Yes Hx Atrial Fibrillation: Yes Hx Hypercholesterolemia: Yes Hx Hypertension: Yes - PULMONARY Hx Respiratory Disorders: No - NEUROLOGICAL Hx Neurological Disorder: No - HEENT Hx HEENT Problems: Yes Hx Cataracts: Yes (surgery) - RENAL Hx Chronic Kidney Disease: No - ENDOCRINE/METABOLIC Hx Endocrine Disorders: Yes Hx Diabetes Mellitus Type 2: Yes - HEMATOLOGICAL/ONCOLOGICAL Hx Blood Disorders: No - INTEGUMENTARY Hx Dermatological Problems: No - MUSCULOSKELETAL/RHEUMATOLOGICAL Hx Musculoskeletal Disorders: Yes Hx Arthritis: Yes Hx Falls: No Hx Osteomyelitis: Yes (fiffth digit of thhe right toe, surgery) - GASTROINTESTINAL Hx Gastrointestinal Disorders: No - GENITOURINARY/GYNECOLOGICAL Hx Genitourinary Disorders: Yes Hx Prostate Problems: Yes (BPH) - PSYCHIATRIC Hx Psychophysiologic Disorder: No Hx Substance Use: No - SURGICAL HISTORY Hx Surgeries: Yes Hx Cataract Extraction: Yes (BILATERAL) Hx Musculoskeletal Surgery: Yes (RIGHT DISTAL TOE SURGERY) - ANESTHESIA Hx Anesthesia: Yes Hx Anesthesia Reactions: No Hx Malignant Hyperthermia: No Has any member of the family had a problem w/ anesthesia?: No Meds Home Medications: Home Medication List Medication Instructions Recorded Confirmed Type Bacitracin OINT 1 applic TOP TID tube 05/21/18 Rx Vancomycin 1 GM [Vancomycin 1GM in 1 gm IVPB DAILY #30 bag 05/21/18 Rx Normal Saline Addvantage] Allergies/Adverse Reactions: Allergies Allergy/AdvReac Type Severity Reaction Status Date / Time No Known Allergies Allergy Verified 09/21/16 18:16 - Medications Medications: Current Medications Alprazolam (Xanax) 0.25 mg PO DAILY PRN PRN Reason: Anxiety Stop: 05/24/18 18:13 Amlodipine Besylate (Norvasc) 5 mg PO DAILY [facility] Last Admin: 05/21/18 08:54 Dose: 5 mg Aspirin (Ecotrin) 81 mg PO [facility] Last Admin: 05/20/18 21:01 Dose: 81 mg Bacitracin (Bacitracin Oint) 1 applic TOP TID [facility] Last Admin: 05/21/18 08:53 Dose: 1 applic Cholecalciferol (Vitamin D) 2,000 intlu PO DAILY [facility] Last Admin: 05/21/18 09:01 Dose: 2,000 intlu Finasteride (Proscar) 5 mg PO DAILY [facility] Last Admin: 05/21/18 09:01 Dose: 5 mg Glipizide (Glucotrol) 2.5 mg PO Q12 [facility] Last Admin: 05/21/18 08:54 Dose: 2.5 mg Home Med (Niacin [Niaspan]) 750 mg PO HS [facility] Last Admin: 05/20/18 22:30 Dose: 750 mg Hydrochlorothiazide (Microzide) 12.5 mg PO Q12 [facility] Last Admin: 05/21/18 09:00 Dose: 12.5 mg Ampicillin Sodium/Sulbactam (Sodium 1.5 gm/ Sodium Chloride) 100 mls @ 100 mls/ hr IVPB Q12H [facility] PRN Reason: Protocol Last Admin: 05/21/18 04:42 Dose: 100 mls/hr Vancomycin HCl 1 gm/ Sodium (Chloride) 250 mls @ 166.667 mls/hr IVPB DAILY [facility] PRN Reason: Protocol Last Admin: 05/21/18 13:40 Dose: 166.667 mls/hr Lisinopril (Zestril) 20 mg PO Q12 [facility] Last Admin: 05/21/18 09:01 Dose: 20 mg Metformin HCl (Glucophage) 1,000 mg PO Q12 [facility] Last Admin: 05/21/18 08:54 Dose: 1,000 mg Metoprolol Tartrate (Lopressor) 25 mg PO Q12 [facility] Last Admin: 05/21/18 08:54 Dose: 25 mg Multivitamins/Minerals (Therapeutic-M Tab) 1 tab PO DAILY [facility] Last Admin: 05/21/18 09:01 Dose: 1 tab Pravastatin Sodium (Pravachol) 20 mg PO [facility] Last Admin: 05/20/18 21:02 Dose: 20 mg Sertraline HCl (Zoloft) 25 mg PO [facility] Last Admin: 05/20/18 21:02 Dose: 25 mg Tamsulosin HCl (Flomax) 0.4 mg PO [facility] Last Admin: 05/20/18 21:03 Dose: 0.4 mg Trazodone HCl (Desyrel) 50 mg PO [facility] Last Admin: 05/20/18 21:03 Dose: 50 mg Warfarin Sodium (Coumadin) 3 mg PO QD5 [facility] PRN Reason: Protocol Stop: 05/21/18 17:01 Physical Exam - Constitutional Appears: Well, No Acute Distress - Head Exam Head Exam: ATRAUMATIC, NORMOCEPHALIC - Eye Exam Eye Exam: EOMI, Normal appearance, PERRL - ENT Exam ENT Exam: Mucous Membranes Moist, Normal Exam - Respiratory Exam Respiratory Exam: Clear to Auscultation Bilateral, NORMAL BREATHING PATTERN - Cardiovascular Exam Cardiovascular Exam: REGULAR RHYTHM - GI/Abdominal Exam GI & Abdominal Exam: Normal Bowel Sounds, Soft - Extremities Exam Additional comments: R hand: moderate third distal phalynx swelling, mild tenderness small open wound at nail bed without drainage diminished ulnar side sensation, intact radial side sensation of third phalynx radial pulse intact - Neurological Exam Neurological exam: Alert, Oriented x3 - Psychiatric Exam Psychiatric exam: Normal Affect, Normal Mood Results - Vital Signs Recent Vital Signs: Last Vital Signs Temp 98.3 F 05/21/18 12:50 Pulse 77 05/21/18 12:50 Resp 18 05/21/18 12:50 BP 137/75 05/21/18 12:50 Pulse Ox 96 05/21/18 12:50 - Labs Result Diagrams: 05/19/18 06:00 05/19/18 06:00 Labs: Laboratory Results - last 24 hr 05/20/18 05/21/18 05/21/18 06:39 05:00 05:40 PT 44.0 H* D INR 3.9 H POC Glucose (mg/dL) 97 67 05/21/18 05/21/18 06:37 11:51 PT INR POC Glucose (mg/dL) 118 H 105 Assessment & Plan (1) Osteomyelitis of finger Assessment and Plan: -Discussed patients case and plan with Dr. Cardozo -recommend conservative management, continue IV abx as per ID -Xeroform/gauze/josep dressings daily -daily soaks with saline/betadine solution 10-15 min -f/u with Dr. Cardozo as needed, otherwise f/u w/ medicine and ID for IV abx management -please reconsult as needed Status: Acute Radiology Interpretation - Notes: Notes:: Accession No. : [id number] Patient Name / ID : JESSICA MARTINEZ / [id number] Exam Date : 05/17/2018 12:37:52 ( Addendum_Approved ) Study Comment : Sex / Age : M / 88Y Creator : Ion Jaramillo MD Dictator : Ion Jaramillo MD Button Riveter : Organization Development Consultant : Ion Jaramillo MD Approver2 : Report Date : 05/17/2018 14:01:55 My Comment : ADDENDUM: Additional history provided. There is no history of trauma. There is a small amount of purulent discharge observed. Findings most likely represent osteomyelitis of the 3rd distal phalanx, distal aspect,, with brittney bony destruction. [ Addendum Report Added by Ion Jaramillo MD at 05/17/2018 14:13:24 ] PROCEDURE: Right Hand Radiographs. HISTORY: 3rd digit injury COMPARISON: None. FINDINGS: BONES: Comminuted fracture of the tuft of the 3rd distal phalanx. There is absent cortex on the distal aspect of the 3rd distal phalanx which is most likely due to displaced fracture fragment. Cannot exclude superimposed osteomyelitis but there is absent periosteal reaction to support this diagnosis. Correlate clinically. No other fracture identified. 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 SOFT TISSUES: Soft tissue swelling about the distal aspect of the 3rd digit OTHER FINDINGS: None. IMPRESSION: Comminuted displaced fracture distal aspect 3rd distal phalanx. Osteoarthritis. - Radiology Interpretation #2 Interpretation: MRI of right hand reports absence of tuft of third distal phalynx highly suspicious of osteomyelitis
[2018-05-21] MEDS ORDERED: Povidone Iodine Topical 10% Sol TOP ONE (15:27)
--- NOTE | 2018-05-21 17:29 | MRI ---
Date of service: 05/19/2018 PROCEDURE: MRI Right 3rd digit without intravenous contrast HISTORY: R/o osteo of right 3rd finger COMPARISON: Right 3rd digit radiographs/ right hand 05/07/2018. TECHNIQUE: An MR examination of the right 3rd digit has been performed using multiplanar multisequential technique without intravenous gadolinium as requested. FINDINGS: There is gross edema is identified within the cortex and marrow of the distal phalanx right 3rd digit with fluid in the subungual space as well as replacing a segment of the dorsal distal tuft grossly suggesting osteomyelitis including erosive bony changes at the tuft. Prominent cellulitis type pattern is seen involving the distal long finger soft tissues extending into the full or proximal soft tissues of the long finger as well as extending into the distal palmar soft tissues. An abscess at the subungual region is not excluded. Further, STIR and fat suppression long TR weighted imaging also revealed suspicious edema pattern throughout the distal phalanx of the index finger also with distal peripheral cellulitis pattern but without definite cortical erosion. Osteomyelitis is suspected here unless there was recent trauma or other explanation for edema here. The flexor digitorum tendons appear unremarkable as well as the extensor digitorum brevis tendon. However, the distal segment of the extensor digitorum longus tendon is intermediate in signal intensity suspicious for potential tendinitis, likely infectious. Clinically correlate further. Collateral ligaments throughout the interphalangeal joints grossly appear intact. IMPRESSION: Findings highly suggestive of osteomyelitis of the distal phalanx right long finger and are suspicious for osteomyelitis without bony erosion of the distal phalanx right index finger. Further clinical correlation advised. A small sub ungual abscess is not excluded at the nail bed overlying the remaining distal phalanx right long finger.
[2018-05-21] MEDS: Pravastatin Sodium 20 MG TAB PO SCH (21:50)
[2018-05-21] MEDS: NIACIN 750 MG PO SCH (21:52)
[2018-05-21 23:57] VITALS: RESP 20
--- NOTE | 2018-05-22 00:14 | CP.PCM.PN ---
Subjective - Date & Time of Evaluation Date of Evaluation: 05/21/18 Time of Evaluation: 10:20 - Subjective Subjective: Patient us fairly stable MRI showed possible osteomyelitis Objective - Vital Signs/Intake and Output Vital Signs (last 24 hours): Temp Pulse Resp BP Pulse Ox 98.1 F 81 18 134/75 97 05/21/18 17:00 05/21/18 21:52 05/21/18 17:00 05/21/18 21:52 05/21/18 17:00 - Medications Medications: Current Medications Alprazolam (Xanax) 0.25 mg PO DAILY PRN PRN Reason: Anxiety Stop: 05/24/18 18:13 Amlodipine Besylate (Norvasc) 5 mg PO DAILY [facility] Last Admin: 05/21/18 08:54 Dose: 5 mg Aspirin (Ecotrin) 81 mg PO HS [facility] Last Admin: 05/21/18 21:52 Dose: 81 mg Bacitracin (Bacitracin Oint) 1 applic TOP TID [facility] Last Admin: 05/21/18 16:09 Dose: 1 applic Cholecalciferol (Vitamin D) 2,000 intlu PO DAILY [facility] Last Admin: 05/21/18 09:01 Dose: 2,000 intlu Finasteride (Proscar) 5 mg PO DAILY [facility] Last Admin: 05/21/18 09:01 Dose: 5 mg Glipizide (Glucotrol) 2.5 mg PO Q12 [facility] Last Admin: 05/21/18 21:51 Dose: 2.5 mg Home Med (Niacin [Niaspan]) 750 mg PO HS [facility] Last Admin: 05/21/18 21:52 Dose: 750 mg Hydrochlorothiazide (Microzide) 12.5 mg PO Q12 [facility] Last Admin: 05/21/18 21:51 Dose: 12.5 mg Ampicillin Sodium/Sulbactam (Sodium 1.5 gm/ Sodium Chloride) 100 mls @ 100 mls/ hr IVPB Q12H [facility] PRN Reason: Protocol Last Admin: 05/21/18 15:45 Dose: 100 mls/hr Vancomycin HCl 1 gm/ Sodium (Chloride) 250 mls @ 166.667 mls/hr IVPB DAILY [facility] PRN Reason: Protocol Last Admin: 05/21/18 13:40 Dose: 166.667 mls/hr Lisinopril (Zestril) 20 mg PO Q12 [facility] Last Admin: 05/21/18 21:52 Dose: 20 mg Metformin HCl (Glucophage) 1,000 mg PO Q12 [facility] Last Admin: 05/21/18 21:50 Dose: 1,000 mg Metoprolol Tartrate (Lopressor) 25 mg PO Q12 [facility] Last Admin: 05/21/18 21:50 Dose: 25 mg Multivitamins/Minerals (Therapeutic-M Tab) 1 tab PO DAILY [facility] Last Admin: 05/21/18 09:01 Dose: 1 tab Pravastatin Sodium (Pravachol) 20 mg PO [facility] Last Admin: 05/21/18 21:50 Dose: 20 mg Sertraline HCl (Zoloft) 25 mg PO [facility] Last Admin: 05/21/18 21:51 Dose: 25 mg Tamsulosin HCl (Flomax) 0.4 mg PO [facility] Last Admin: 05/21/18 21:50 Dose: 0.4 mg Trazodone HCl (Desyrel) 50 mg PO [facility] Last Admin: 05/21/18 21:50 Dose: 50 mg - Labs Labs: 05/19/18 06:00 05/19/18 06:00 PT 44.0 Seconds (9.8-13.1) H* D 05/21/18 05:00 INR 3.9 (0.9-1.2) H 05/21/18 05:00 APTT 37.7 Seconds (25.6-37.1) H 05/17/18 14:00 Assessment and Plan (1) Osteomyelitis of finger Status: Acute (2) A-fib Status: Chronic (3) BPH (benign prostatic hyperplasia) Status: Chronic (4) Diabetes mellitus Status: Chronic
[2018-05-22 05:12] LABS: HEMOGLOBIN 13.1 g/dL (12.0-18.0); MEAN CORPUSCULAR HEMOGLOBIN 30.5 pg (27.0-31.0); MEAN CORPUSCULAR HGB CONC 34.3 g/dL (33.0-37.0); RBC 4.3 Mil/uL (4.40-5.90); WHITE BLOOD COUNT 7.9 K/uL (4.8-10.8)
[2018-05-22 06:32] LABS: INR 3.7 (0.9-1.2)
[2018-05-22 09:00] VITALS: BP 164/87; PULSE 79; TEMP 97.4; O2SAT 97
[2018-05-22] MEDS: Multivitamin With Minerals Tab PO SCH (09:03)
[2018-05-22] MEDS: Cholecalciferol 1,000 INTLU TAB PO SCH (09:05)
[2018-05-22] MEDS: Bacitracin OINT 15GM TOP SCH ×2 (09:05→12:36)
--- NOTE | 2018-05-22 11:59 | CP.PCM.DIS ---
Provider - Provider Date of Admission: 05/17/18 13:39 Attending physician: Xavi Hansen MD Time Spent in preparation of Discharge (in minutes): 20 Diagnosis - Discharge Diagnosis (1) A-fib Status: Chronic (2) Hypercholesteremia Status: Chronic (3) Osteomyelitis of finger Status: Acute (4) Diabetes mellitus Status: Chronic (5) BPH (benign prostatic hyperplasia) Status: Chronic Hospital Course - Lab Results Lab Results: Most Recent Lab Values WBC 7.9 K/uL (4.8-10.8) 05/22/18 05:08 RBC 4.30 Mil/uL (4.40-5.90) L 05/22/18 05:08 Hgb 13.1 g/dL (12.0-18.0) 05/22/18 05:08 Hct 38.3 % (35.0-51.0) 05/22/18 05:08 MCV 89.0 fl (80.0-94.0) 05/22/18 05:08 MCH 30.5 pg (27.0-31.0) 05/22/18 05:08 MCHC 34.3 g/dL (33.0-37.0) 05/22/18 05:08 RDW 14.0 % (11.5-14.5) 05/22/18 05:08 Plt Count 174 K/uL (130-400) 05/22/18 05:08 MPV 7.9 fl (7.2-11.7) 05/17/18 14:00 Neut % (Auto) 78.6 % (50.0-75.0) H 05/17/18 14:00 Lymph % (Auto) 12.2 % (20.0-40.0) L 05/17/18 14:00 [place] % (Auto) 8.3 % (0.0-10.0) 05/17/18 14:00 Eos % (Auto) 0.8 % (0.0-4.0) 05/17/18 14:00 Baso % (Auto) 0.1 % (0.0-2.0) 05/17/18 14:00 Neut # (Auto) 8.4 K/uL (1.8-7.0) H 05/17/18 14:00 Lymph # (Auto) 1.3 K/uL (1.0-4.3) 05/17/18 14:00 [place] # (Auto) 0.9 K/uL (0.0-0.8) H 05/17/18 14:00 Eos # (Auto) 0.1 K/uL (0.0-0.7) 05/17/18 14:00 Baso # (Auto) 0.0 K/uL (0.0-0.2) 05/17/18 14:00 ESR 44 mm/hr (0-20) H 05/17/18 14:00 PT 42.0 Seconds (9.8-13.1) H* 05/22/18 05:08 INR 3.7 (0.9-1.2) H 05/22/18 05:08 APTT 37.7 Seconds (25.6-37.1) H 05/17/18 14:00 Sodium 141 mmol/l (132-148) 05/19/18 06:00 Potassium 3.8 MMOL/L (3.6-5.0) 05/19/18 06:00 Chloride 104 mmol/L (98-107) 05/19/18 06:00 Carbon Dioxide 23 mmol/L (22-30) 05/19/18 06:00 Anion Gap 18 (10-20) 05/19/18 06:00 BUN 27 mg/dl (9-20) H 05/19/18 06:00 Creatinine 1.4 mg/dl (0.8-1.5) 05/19/18 06:00 Est GFR ( Amer) 58 05/19/18 06:00 Est GFR (Non-Af Amer) 48 05/19/18 06:00 POC Glucose (mg/dL) 88 mg/dL (65-110) 05/22/18 05:36 Random Glucose 123 mg/dL (75-110) H 05/19/18 06:00 Calcium 9.4 mg/dL (8.4-10.2) 05/19/18 06:00 Total Bilirubin 1.0 mg/dl (0.2-1.3) 05/19/18 06:00 AST 40 U/L (17-59) 05/19/18 06:00 ALT 30 U/L (21-72) 05/19/18 06:00 Alkaline Phosphatase 54 U/L (38-126) 05/19/18 06:00 Total Protein 7.1 G/DL (6.3-8.2) 05/19/18 06:00 Albumin 4.0 g/dL (3.5-5.0) 05/19/18 06:00 Globulin 3.1 gm/dL (2.2-3.9) 05/19/18 06:00 Albumin/Globulin Ratio 1.3 (1.0-2.1) 05/19/18 06:00 - Hospital Course Hospital Course: 88 YO male with PMHx of A.Fib, HTN, hypercholestrolemia, DM, BPH and arthritis is admitted for osteomylitis of R middle finger. Pt was seen by Ortho and ID as inpatient and has been getting IV abx. Cleared for d/c by consultants, conservative treatment per ortho, and per ID will need 4 weeks of abx with Vanco. Pt to be d/c home today with follow up in ER for daily IV abx infusion and follow up blood work. INR elevated, warfarin adjusted, pt to follow up PMD in 1 week. Discharge Exam - Head Exam Head Exam: ATRAUMATIC, NORMOCEPHALIC - Eye Exam Eye Exam: EOMI, Normal appearance - Respiratory Exam Respiratory Exam: Clear to PA & Lateral. absent: Wheezes - Cardiovascular Exam Cardiovascular Exam: REGULAR RHYTHM, +S1, +S2 - GI/Abdominal Exam GI & Abdominal Exam: Normal Bowel Sounds, Soft. absent: Tenderness - Extremities Exam Extremities exam: normal inspection Additional comments: R middle finger in gauze, no discharge noted - Neurological Exam Neurological exam: Alert, Oriented x3 - Psychiatric Exam Psychiatric exam: Normal Affect, Normal Mood Discharge Plan - Discharge Medications Prescriptions: Vancomycin 1 GM [Vancomycin 1GM in Normal Saline Addvantage] 1 gm IVPB DAILY # 30 bag Warfarin [Coumadin] 4 mg PO DAILY #60 tab - Follow Up Plan Condition: FAIR Disposition: HOME/ ROUTINE Instructions: Osteomyelitis (DC), Peripherally-Inserted Central Catheter (DC) Additional Instructions: follow up with primary MD 1 week Return to Same day for antibiotic infusion monday-monday and to Emergency Department monday and monday Referrals: Xavi Hansen MD [Family Provider] - Pramod Jesus MD [Medical Doctor] - Sang Cardozo MD [Medical Doctor] -
== END 2018-05-22 14:05 | disposition home or self-care (01) | DRG 638 ==
LOC: H.ER 11:12 → H.ERHOLD 13:39 → H.MEDSURG1 16:50
PROVIDERS: ADMIT Family Medicine; ATTEND Family Medicine
PROC: 02HV33Z Insertion of Infusion Device into Superior Vena Cava, Percutaneous Approach (ICD-10-PCS; principal; 2018-05-21)
DX: E11.69 Type 2 diabetes mellitus with other specified complication (principal); M86.9 Osteomyelitis, unspecified; I48.2 Chronic atrial fibrillation; N40.0 Benign prostatic hyperplasia without lower urinary tract symptoms; E78.00 Pure hypercholesterolemia, unspecified; I10 Essential (primary) hypertension; M19.041 Primary osteoarthritis, right hand; H91.90 Unspecified hearing loss, unspecified ear; R79.1 Abnormal coagulation profile